=== PATIENT | female | born 1980 | race African-American/Black ===

== ENCOUNTER 2022-01-22 21:21 | Emergency (ER) | payer MEDICAID ==
[~2022-01-22] VITALS: Ht 180.3 cm; Wt 75.0 kg
[2022-01-23] MEDS ORDERED: TETanus/Pertussis (Acell)/Diphther VAC/PF (Tdap-Adult) 0.5ml syringe IMVAC ONE (00:05)
[2022-01-23] MEDS ORDERED: ondansetron 4mg rapidly disintigrating tab PO ONE ×2 (00:05→03:15)
[2022-01-23] MEDS ORDERED: proparacaine 0.5% ophthalmic drops 15ml EACHEYE ONE (00:10)
[2022-01-23] MEDS ORDERED: fluorescein sod 1mg ophthalmic strip LEFTEYE ONE (00:10)
--- NOTE | 2022-01-23 00:36 | NUR ---
im given po med given eye topical x2 given to er provider on bedside table.
[2022-01-23 03:45] VITALS: BP 109/68
[2022-01-23] MEDS ORDERED: acetaminophen 325mg tablet PO ONE (04:45)
--- NOTE | 2022-01-23 05:20 | NUR ---
JUSTIN CALLED CASE # [id number]
== END 2022-01-23 05:30 | disposition short-term general hospital (02) ==
LOC: ER 21:21
DX: S61.214A Laceration without foreign body of right ring finger without damage to nail, initial encounter (principal); Z20.822 Contact with and (suspected) exposure to COVID-19; S61.216A Laceration without foreign body of right little finger without damage to nail, initial encounter; S05.91XA Unspecified injury of right eye and orbit, initial encounter; H54.61 Unqualified visual loss, right eye, normal vision left eye; R11.0 Nausea; F12.90 Cannabis use, unspecified, uncomplicated; Z98.890 Other specified postprocedural states; Z72.89 Other problems related to lifestyle; Z88.8 Allergy status to other drugs, medicaments and biological substances; Z88.5 Allergy status to narcotic agent; X58.XXXA Exposure to other specified factors, initial encounter; Y93.89 Activity, other specified; Y92.89 Other specified places as the place of occurrence of the external cause; Y99.8 Other external cause status
CPT/HCPCS: 12001; 70450; 70486; 87635; 90471; 90715; 99285; C9803; J3490